=== PATIENT | male | born 1945 | race Caucasian/White ===

== ENCOUNTER 2020-11-18 14:25 | Emergency (ER) | payer BC ==
[~2020-11-18] VITALS: Ht 185.4 cm; Wt 63.5 kg
--- NOTE | 2020-11-18 14:25 | NUR ---
BIB [facility] FROM HOME,C/O GENERALIZED BODY PAIN,SLIPPED/FELL IN HIS BATHROOM 2 DAYS AGO. TO ER BED 10, MALIKAKD TO MONITOR, CHANGED TO HOSP GOWN, WARM BLANKET PROVIDED, PATIENT AAO x3. AWAITING MD WHITE
--- NOTE | 2020-11-18 14:40 | NUR ---
DR WICK AT BEDSIDE FOR EVAL
--- NOTE | 2020-11-18 15:06 | NUR ---
PATIENT CAN'T TOLERATE BEING ON SUPINE POSITION WHEN TAKING CT SCAN. MADE DR WICK AWARE
[2020-11-18] MEDS ORDERED: HYDR-4384 PO (16:00)
--- NOTE | 2020-11-18 16:19 | NUR ---
Kelby wong in [facility] - 11/18/20 at 1620 by AARON AMWEST ETA [id number]
--- NOTE | 2020-11-18 16:20 | NUR ---
AMWEST ETA 1815 Addendum: 11/18/20 at 1650 by RBATACLAN CANCELLED
--- NOTE | 2020-11-18 16:29 | NUR ---
CALLED [facility] ETA [id number]
[2020-11-18] MEDS ORDERED: HYDROCODONE/APAP 5/325MG TABLET ONE (17:29)
--- NOTE | 2020-11-18 17:32 | NUR ---
PATIENT PICKED UP BY [facility] [address] IN STABLE CONDITION. PATIENT WILL BE BROUGHT HOME. PROVIDED WITH CD COPY OF IMAGES. Written and verbal after care instructions given. Patient verbalizes understanding of instruction.
[2020-11-18 17:35] VITALS: BP 146/82
[2020-11-18] MEDS ORDERED: HYDROCODONE/APAP 5/325MG TABLET PO ONE (18:00)
== END 2020-11-18 17:35 | disposition home or self-care (01) ==
LOC: ER 14:30
DX: S20.214A Contusion of middle front wall of thorax, initial encounter (principal); Z85.841 Personal history of malignant neoplasm of brain; Z98.890 Other specified postprocedural states; Z79.899 Other long term (current) drug therapy; W18.09XA Striking against other object with subsequent fall, initial encounter; Y93.89 Activity, other specified; Y92.091 Bathroom in other non-institutional residence as the place of occurrence of the external cause; Y99.8 Other external cause status
CPT/HCPCS: 71100-TC